=== PATIENT | male | born 1940 | race Caucasian/White ===

== ENCOUNTER 2023-07-15 11:41 | Outpatient (CLI) | payer MEDICARE ==
[2023-07-15 13:08] LABS: Hematocrit 38.9 % (38.8-50.0); Hemoglobin 12.7 g/dL (13.5-17.5); Mean Corpuscular HGB CONC 32.6 g/dL (32.0-36.0); Mean Corpuscular Hemoglobin 32.7 pg (27.0-33.0); Mean Corpuscular Volume 100.3 fl (81.2-95.1); Mean Platelet Volume 8.5 fl (7.4-10.4); Platelet Count 308 10x3/uL (150-450); RBC Distribution Width 16.3 % (11.5-14.5); Red Blood Cell (RBC) Count 3.88 10x6/uL (4.32-5.72); White Blood Cell (WBC) Count 7.1 10x3/uL (3.5-10.5)
[2023-07-15 13:22] LABS: INR-International Normal Ratio 0.9; PTT 28.2 sec (22.0-33.0)
[2023-07-15 13:24] LABS: Anion Gap 13 mmol/L (10-20); BUN (Urea Nitrogen) 12 mg/dL (8.4-25.7); Calc. Creatinine Clearance 0 mL/min (70-130); Calcium 8.6 mg/dL (7.8-10.44); Carbon Dioxide 25 mmol/L (23-31); Chloride 106 mmol/L (98-107); Estimated GFR 88; Glucose 91 mg/dL (83-110); Potassium 3.8 mmol/L (3.5-5.1); Sodium 140 mmol/L (136-145)
== END 2023-07-15 11:42 | disposition home or self-care (01) ==
LOC: CSHLAB 11:41
PROVIDERS: ATTEND Surgery
DX: Z01.818 Encounter for other preprocedural examination (principal); C67.8 Malignant neoplasm of overlapping sites of bladder
CPT/HCPCS: 80048; 85027; 85610; 85730; 93005; 93010

== ENCOUNTER 2023-07-19 05:50 | Day surgery (SDC) | payer MEDICARE ==
[2023-07-15 12:42] VITALS: BMI 19.5
[2023-07-19] MEDS ORDERED: EPINEPHrine 1 MG/ML VIAL ONE (06:23)
[2023-07-19] MEDS ORDERED: PROPOFOL 20 ML ONE (06:23)
[2023-07-19] MEDS ORDERED: Bupivacaine PF 0.5% 30 ML VIAL ONE (06:23)
[2023-07-19] MEDS ORDERED: Midazolam HCl 2 mg/2 ml Vial ONE (06:23)
[2023-07-19] MEDS ORDERED: fentaNYL 50 mcg/mL 1 mL Vial ONE (06:23)
[2023-07-19] MEDS ORDERED: Dexamethasone 20 MG/5 ML VIAL ONE (06:23)
[2023-07-19] MEDS ORDERED: Ondansetron PF 4 MG/2 ML Vial ONE (06:23)
[2023-07-19] MEDS ORDERED: CEFAZOLIN 2 GM VIAL ONE (06:45)
[2023-07-19] MEDS ORDERED: PHENYLEPHRINE-NS 100 MCG/ML 10 ML SYRINGE ONE (07:09)
[2023-07-19] MEDS ORDERED: Acetaminophen 325 MG TAB PO PRN (07:51)
[2023-07-19] MEDS ORDERED: HYDROcodone/Acetaminophen 5/325 mg Tablet PO PRN (07:51)
== END 2023-07-19 08:35 | disposition home or self-care (01) ==
LOC: CSHSDC 05:50
PROVIDERS: ATTEND Surgery
PROC: 0JH60WZ Insertion of Totally Implantable Vascular Access Device into Chest Subcutaneous Tissue and Fascia, Open Approach (ICD-10-PCS; principal; 2023-07-19)
DX: C67.8 Malignant neoplasm of overlapping sites of bladder (principal); J44.9 Chronic obstructive pulmonary disease, unspecified; K21.9 Gastro-esophageal reflux disease without esophagitis; M10.9 Gout, unspecified; Z79.899 Other long term (current) drug therapy; Z98.890 Other specified postprocedural states
CPT/HCPCS: 71045; J0171; J1100; J1642; J2250; J2405; J2704; J3010; S0020